=== PATIENT | male | born 1945 | race Caucasian/White ===

== ENCOUNTER → 2017-08-20 | Day surgery (SDC) | payer BC, MEDICARE ==
[2017-08-19 11:12] LABS: BASOPHILS # (AUTO) 0.1 (0.0-0.1); BASOPHILS % 0.8 % (0.0-1.0); EOSINOPHILS # (AUTO) 0.2 (0.0-0.4); EOSINOPHILS % 1.7 % (0.0-6.0); HEMATOCRIT 41.4 % (38.2-49.6); HEMOGLOBIN 13.9 g/dL (14.0-18.0); LYMPHOCYTES # (AUTO) 3.3 (1.0-3.2); LYMPHOCYTES % 36.8 % (18.0-39.1); MEAN CORPUSCULAR HEMOGLOBIN 33.5 pg (28-32); MEAN CORPUSCULAR HGB CONC 33.6 g/dL (31-35); MEAN CORPUSCULAR VOLUME 99.8 fL (81-99); MONOCYTES # (AUTO) 0.7 (0.2-0.8); MONOCYTES % 8.2 % (4.4-11.3); NEUTROPHILS # (AUTO) 4.6 (2.1-6.9); NEUTROPHILS % 52.2 % (38.7-80.0); PLATELET COUNT 265 x10e3/uL (140-360); RED BLOOD COUNT 4.15 x10e6/uL (4.3-5.7); RED CELL DISTRIBUTION WIDTH 13.5 % (11.7-14.4)
[2017-08-19 11:35] LABS: ALANINE AMINOTRANSFERASE 22 IU/L (0-55); ALBUMIN 3.6 g/dL (3.5-5.0); ALKALINE PHOSPHATASE 58 IU/L (40-150); ANION GAP 8.2 mmol/L (8-16); BLOOD UREA NITROGEN 20 mg/dL (7-26); BUN/CREATININE RATIO 21 (6-25); CALCIUM 8.6 mg/dL (8.4-10.2); CARBON DIOXIDE 29 mmol/L (22-29); CHLORIDE 104 mmol/L (98-107); CHOLESTEROL 228 MD/DL (0-199); CREATININE, SERUM 0.95 mg/dL (0.72-1.25); EST GLOMERULAR FILTRATION RATE > 60 ML/MIN (60-); GLUCOSE 94 mg/dL (74-118); HDL CHOLESTEROL 38 MG/DL (40-60); LDL CHOLESTEROL 165 MG/DL (60-130); POTASSIUM 5.2 mmol/L (3.5-5.1); SODIUM 136 mmol/L (136-145); TRIGLYCERIDES 124 MG/DL (0-149)
[~2017-08-20] VITALS: Ht 185.4 cm; Wt 104.3 kg
[~2017-08-20] MED LIST: FENTANYL CITRATE/PF 100MCG/2 ML INJ ONE; HEPARIN SOD/SOD CHLORIDE 2,000 ML ONE; IOPAMIDOL 300MG/ML 100 ML INFUS..BTL IV ONE; LIDOCAINE HCL 2% LOCAL 20 ML VIAL ONE; METOPROLOL SUC100 MG PO; MIDAZOLAM HCL 2 MG/2 ML VIAL ONE; PROTAMINE SULFATE 10 MG/ML 5 ML VIAL ONE; SODIUM CHLORIDE 0.9% 1000ML 1,000 ML ONE; SODIUM CHLORIDE 0.9% 50ML 100 ML ONE; VERAPAMIL HCL 2.5 MG/ML 2 ML VIAL ONE
--- NOTE | 2017-08-20 16:02 | Operative Report ---
DATE OF PROCEDURE: August 20, 2017 INDICATIONS: Peripheral arterial disease. PROCEDURES PERFORMED 1. Abdominal aortogram. 2. Selective placement of catheter from the left femoral artery to the right superficial femoral artery (3rd-order catheter placement). 3. Additional 3rd-order catheter placement from the left femoral artery to the right posterior tibial artery. 4. Bilateral lower extremity angiogram. 5. Atherectomy and drug-coated balloon angioplasty of the right superficial femoral artery. 6. Secondary thrombectomy of the right superficial femoral artery. COMPLICATIONS: None. RECOMMENDATIONS: Medical therapy with dual antiplatelet therapy and statin. PROCEDURE: Access was obtained in the left femoral artery. A 6-Swedish sheath was placed. Abdominal aortogram demonstrated 50% common left iliac disease and 50% right external iliac disease. Right femoral artery appeared to be occluded. The catheter was then advanced from the left femoral artery to the right superficial femoral artery confirming complete occlusion of the right superficial femoral artery and reconstitution at the level of the proximal right popliteal artery. Infrapopliteal vessels were not well seen. The catheter was then advanced from the left femoral artery to the right posterior tibial artery confirming 2-vessel runoff to the foot. Left femoral artery 50% stenosis with 2-vessel runoff. A decision was made to intervene on the right femoral artery. The patient received 11,500 units of intra-arterial heparin with an ACT of 249. Oral Effient was administered. Lesion was crossed using a Glidewire. Orbital atherectomy using a CSI device resulted in large amounts of visible thrombus for which manual aspiration and secondary thrombectomy were needed. Balloon angioplasty with a 6-mm drug-coated balloon resulted in excellent results, less than 10% residual stenosis and 2-vessel runoff to the right foot. No complications. Left groin sheath was removed under manual pressure. Patient discharged home the same day. Job#: [id number]
== END | disposition home or self-care (01) ==
LOC: CATH LAB 09:11
PROVIDERS: ATTEND Internal Medicine Interventional Cardiology
DX: I70.201 Unspecified atherosclerosis of native arteries of extremities, right leg (principal); I70.92 Chronic total occlusion of artery of the extremities; I20.8 Other forms of angina pectoris; M19.90 Unspecified osteoarthritis, unspecified site; Z01.812 Encounter for preprocedural laboratory examination; Z68.31 Body mass index [BMI] 31.0-31.9, adult; Z82.49 Family history of ischemic heart disease and other diseases of the circulatory system
CPT/HCPCS: 36415; 37186; 37225; 75625; 75630; 77002; 80053; 80061; 85025; C1725; C1769; C1887; C2623; J2001; J2250; J2720; J7030; Q9967; 36140; 92924